=== PATIENT | male | born 1965 | race Caucasian/White ===

== ENCOUNTER → 2018-12-22 | Outpatient (REF) | payer OTHER ==
[2018-12-24 00:15] LABS: TESTOSTERONE FREE (DIRECT) 6.9 pg/mL (7.2-24.0)
== END ==
LOC: M LAB REF 12:54
PROVIDERS: ATTEND Nurse Practitioner Family
DX: N52.9 Male erectile dysfunction, unspecified (principal)

== ENCOUNTER → 2019-03-05 | Outpatient (REF) | payer OTHER ==
[2019-03-05 12:32] LABS: FOLLICLE STIMULATING HORMONE 7.5 mIU/mL (1.4-18.1); PROLACTIN 7.6 NG/ML (2.1-17.7)
[2019-03-09 14:20] LABS: TESTOSTERONE %FREE+WEAKLY BOUN 8.5 % (9.0-46.0); TESTOSTERONE FREE+WEAKLY BOUND 51.3 ng/dL (40.0-250.0); TESTOSTERONE TOTAL 603 ng/dL (264-916)
== END ==
LOC: M LABDRAW1 11:53
PROVIDERS: ATTEND Nurse Practitioner Family
DX: E29.1 Testicular hypofunction (principal)

== ENCOUNTER → 2019-11-28 | Outpatient (CLI) | payer SELFPAY | LOC: M LABSMTC 11:26 | PROVIDERS: ATTEND Pediatrics | DX: Z20.828 Contact with and (suspected) exposure to other viral communicable diseases (principal) ==

== ENCOUNTER 2023-04-23 12:47 | Day surgery (SDC) | payer OTHER ==
[~2023-04-23] VITALS: Ht 177.8 cm; Wt 108.5 kg
[2023-04-23] MEDS: NS 1,000 ML IV ONE (13:42)
[2023-04-23] MEDS ORDERED: propofoL 200 MG/20 ML VIAL As Ordered ONE (15:00)
[2023-04-23] MEDS ORDERED: LIDOCAINE 2% 100MG/5ML SDV (FOR ANES.) As Ordered ONE (15:00)
[2023-04-23 16:00] VITALS: BP 116/68; TEMP 97; O2SAT 97
== END 2023-04-23 16:19 | disposition home or self-care (01) ==
LOC: M OPP 12:47
PROVIDERS: ATTEND Internal Medicine Gastroenterology
DX: Z12.11 Encounter for screening for malignant neoplasm of colon (principal); D12.3 Benign neoplasm of transverse colon; K63.5 Polyp of colon; K64.0 First degree hemorrhoids; K57.30 Diverticulosis of large intestine without perforation or abscess without bleeding

== ENCOUNTER → 2024-05-26 | Outpatient (REF) | payer OTHER | LOC: M LAB REF 17:06 | PROVIDERS: ATTEND Nurse Practitioner Family | DX: M71.022 Abscess of bursa, left elbow (principal) ==